=== PATIENT | female | born 1960 | race Caucasian/White ===

== ENCOUNTER 2017-12-11 21:43 | Emergency (ER) | payer BC ==
[2017-12-11 21:52] VITALS: BP 181/100
--- NOTE | 2017-12-11 22:18 | UC ---
Truncal Trauma HPI - History Of Current Complaint Chief Complaint: UCGeneralIllness Stated Complaint: SORE THROAT Time Seen by Provider: 12/11/17 22:10 Pain Intensity: 2 - Allergies/Home Medications Allergies/Adverse Reactions: Allergies Allergy/AdvReac Type Severity Reaction Status Date / Time MS Cat Hair Extract Allergy Unknown Verified 06/27/16 11:24 Reaction Details MS Pork Allergy Allergy DIARRHEA Verified 06/27/16 11:24 [Pork Allergy] AND VOMITING Penicillins Allergy Hives Verified 12/11/17 21:53 ENVIRONMENTAL/SEASONAL Allergy STUFFINESS Uncoded 02/12/15 11:05 HAYFEVER Home Medications: Home Medications NK [No Home Medications Reported] 12/11/17 [History Confirmed 12/11/17] PMH/Surg Hx/FS Hx/Imm Hx - Surgical History Surgical History: Yes Surgery Procedure, Year, and Place: 1985 FIBROID SURGERY, [facility]. 1999 LAPAROSCOPIC CHOLECYSTECTOMY, [facility] [place]. 2002 LEFT BREAST CANCER LUMPECTOMY. SECACEOUS CYST REMOVED FROM BELOW RIGHT BREAST AND CHEEK, OFFICE - Family History Known Family History: Positive: Diabetes, Other - Breast CA - Social History Alcohol Use: Rare Alcohol Amount: >1xmonth Substance Use Type: None Smoking Status (MU): Never Smoked Tobacco Review of Systems All Other Systems Reviewed And Are Negative: Yes Physical Exam Vital Signs: Initial Vital Signs Temp 37.7 C 12/11/17 21:47 Pulse 97 12/11/17 21:47 Resp 20 12/11/17 21:47 BP 181/100 12/11/17 21:47 Pulse Ox 96 12/11/17 21:47 Discharge - Sign-Out/Discharge Documenting (check all that apply): Discharge - Discharge Plan Condition: Stable Disposition: HOME Patient Education Materials: Pharyngitis (ED) Referrals: José Moreira NP [Primary Care Provider] - - Billing Disposition and Condition Condition: STABLE Disposition: HOME
--- NOTE | 2017-12-11 22:25 | UC ---
Throat Pain/Nasal Ranjan HPI - HPI Summary HPI Summary: 57 yo WF c/o sore throat x 3-4 days associated with nasal congestion and URI sx , denies f/c/cough - History of Current Complaint Chief Complaint: UCGeneralIllness Stated Complaint: SORE THROAT Time Seen by Provider: 12/11/17 22:10 Hx Obtained From: Patient Onset/Duration: Lasting Days Pain Intensity: 2 - Allergies/Home Medications Allergies/Adverse Reactions: Allergies Allergy/AdvReac Type Severity Reaction Status Date / Time MS Cat Hair Extract Allergy Unknown Verified 06/27/16 11:24 Reaction Details MS Pork Allergy Allergy DIARRHEA Verified 06/27/16 11:24 [Pork Allergy] AND VOMITING Penicillins Allergy Hives Verified 12/11/17 21:53 ENVIRONMENTAL/SEASONAL Allergy STUFFINESS Uncoded 02/12/15 11:05 HAYFEVER Home Medications: Home Medications NK [No Home Medications Reported] 12/11/17 [History Confirmed 12/11/17] PMH/Surg Hx/FS Hx/Imm Hx Previously Healthy: Yes - Surgical History Surgical History: Yes Surgery Procedure, Year, and Place: 1985 FIBROID SURGERY, [facility]. [place] [facility] [place] LEFT BREAST CANCER LUMPECTOMY. SECACEOUS CYST REMOVED FROM BELOW RIGHT BREAST AND CHEEK, OFFICE - Family History Known Family History: Positive: Diabetes, Other - Breast CA - Social History Alcohol Use: Rare Alcohol Amount: >1xmonth Substance Use Type: None Smoking Status (MU): Never Smoked Tobacco Review of Systems Constitutional: Negative Skin: Negative Eyes: Negative ENT: Sore Throat, Sinus Congestion Respiratory: Negative Cardiovascular: Negative Gastrointestinal: Negative Genitourinary: Negative Motor: Negative Neurovascular: Negative Musculoskeletal: Negative Neurological: Negative Psychological: Negative All Other Systems Reviewed And Are Negative: Yes Physical Exam Triage Information Reviewed: Yes Appearance: Well-Appearing Vital Signs: Initial Vital Signs Temp 37.7 C 12/11/17 21:47 Pulse 97 12/11/17 21:47 Resp 20 12/11/17 21:47 BP 181/100 12/11/17 21:47 Pulse Ox 96 12/11/17 21:47 Vital Signs Reviewed: Yes Eye Exam: Normal ENT: Positive: Pharyngeal erythema, TMs normal, Sinus tenderness. Negative: Tonsillar swelling, Tonsillar exudate Dental Exam: Normal Neck exam: Normal Neck: Positive: 1 Respiratory Exam: Normal Cardiovascular Exam: Normal Abdominal Exam: Normal Musculoskeletal Exam: Normal Neurological Exam: Normal Psychological Exam: Normal Skin Exam: Normal Throat Pain/Nasal Course/Dx - Course Course Of Treatment: Rapid strep neg - Differential Dx/Diagnosis Provider Diagnoses: viral pharyngitis. URI Discharge - Sign-Out/Discharge Documenting (check all that apply): Discharge - Discharge Plan Condition: Stable Disposition: HOME Patient Education Materials: Pharyngitis (ED) Referrals: José Moreira NP [Primary Care Provider] - - Billing Disposition and Condition Condition: STABLE Disposition: HOME
== END 2017-12-11 22:25 | disposition home or self-care (01) ==
LOC: UCEAST 21:43
DX: J02.8 Acute pharyngitis due to other specified organisms (principal); J06.9 Acute upper respiratory infection, unspecified; Z88.0 Allergy status to penicillin
CPT/HCPCS: 87651; 99212; G0463

== ENCOUNTER → 2019-04-07 01:13 | Emergency (ER) | payer BC ==
[~2019-04-07 01:13] MED LIST: Codeine TAB* 15 MG PO ONE; Codeine TAB* 30 MG PO ONE; predniSONE TAB* 50 MG PO ONE
--- NOTE | 2019-04-07 01:50 | ED ---
Shortness of Breath - HPI Summary HPI Summary: This patient is a 58 year old F [place] [facility] with a chief complaint of SOB lasting 5 minutes prior to arrival. Pt reports that she has been having seasonal allergies for the past month. ON 04/06/19 the post- nasal drip became so bad that she kept coughing. Pt takes Benadryl for these adverse reactions. Pt went to sleep and then reported SOB. Patient reports pain on flanks and down both arms, change in speech, throat itching, and ears itching. Pt has hypothyroidism, and HTN. - History of Current Complaint Chief Complaint: EDShortnessOfBreath Time Seen by Provider: 04/07/19 01:27 Hx Obtained From: Patient Onset/Duration: Sudden Onset, Lasting Minutes, Resolved Current Severity: None Aggravating Factors: Allergens Alleviating Factors: Spontaneous Resolution Associated Signs & Symptoms: Cough (Nonproductive), Nasal Congestion - Allergy/Home Medications Allergies/Adverse Reactions: Allergies Allergy/AdvReac Type Severity Reaction Status Date / Time MS Cat Hair Extract Allergy Unknown Verified 04/07/19 01:16 Reaction Details MS Pork Allergy Allergy DIARRHEA Verified 04/07/19 01:16 [Pork Allergy] AND VOMITING Penicillins Allergy Hives Verified 04/07/19 01:16 ENVIRONMENTAL/SEASONAL Allergy STUFFINESS Uncoded 04/07/19 01:16 HAYFEVER PMH/Surg Hx/FS Hx/Imm Hx Endocrine/Hematology History: Denies: Hx Diabetes, Hx Thyroid Disease Cardiovascular History: Reports: Hx Hypertension - ON MEDICATION Respiratory History: Denies: Hx Asthma, Hx Chronic Obstructive Pulmonary Disease (COPD) GI History: Denies: Hx Ulcer Sensory History: Reports: Hx Contacts or Glasses - GLASSES Denies: Hx Hearing Aid Opthamlomology History: Reports: Hx Contacts or Glasses - GLASSES - Cancer History Cancer Type, Location and Year: left breast ca 2002=lumpectomy - Surgical History Surgery Procedure, Year, and Place: 1985 FIBROID SURGERY, [facility]. 1999 [place] [facility] [place] LEFT BREAST CANCER LUMPECTOMY. SECACEOUS CYST REMOVED FROM BELOW RIGHT BREAST AND CHEEK, OFFICE. PARTIAL HYSTERECTOMY 2017- BOTH OVARIES AND HALF OF CERVIX REMAINING POST SURGERY Hx Anesthesia Reactions: Yes - IN & OUT OF CONSCIOUSNESS FOR A FEW DAYS WITH GENERAL Infectious Disease History: No Infectious Disease History: Denies: Hx Hepatitis, Hx Human Immunodeficiency Virus (HIV), Traveled Outside the [place] in Last 30 Days - Family History Known Family History: Positive: Diabetes, Other - Breast CA - Social History Lives: With Family Alcohol Use: Rare Alcohol Amount: >1xmonth Substance Use Type: Reports: None Smoking Status (MU): Never Smoked Tobacco Review of Systems Positive: Nasal Discharge, Other - pos - ears and throat itching Positive: Shortness Of Breath, Cough Positive: Other - pos - reports pain on flanks and down both arms All Other Systems Reviewed And Are Negative: Yes Physical Exam - Summary Physical Exam Summary: VITAL SIGNS: Reviewed. GENERAL: Patient is a well-developed and nourished female who is lying comfortable in the stretcher. Patient is not in any acute respiratory distress. HEAD AND FACE: No signs of trauma. No ecchymosis, hematomas or skull depressions. No sinus tenderness. EYES: PERRLA, EOMI x 2, No injected conjunctiva, no nystagmus. EARS: Hearing grossly intact. Ear canals and tympanic membranes are within normal limits. MOUTH: Oropharynx within normal limits. NECK: Supple, trachea is midline, no adenopathy, no JVD, no carotid bruit, no c- spine tenderness, neck with full ROM CHEST: Symmetric, no tenderness at palpation LUNGS: Clear to auscultation bilaterally. No wheezing or crackles. CVS: Regular rate and rhythm, S1 and S2 present, no murmurs or gallops appreciated. ABDOMEN: Soft, non-tender. No signs of distention. No rebound no guarding, and no masses palpated. Bowel sounds are normal. EXTREMITIES: FROM in all major joints, no edema, no cyanosis or clubbing. NEURO: Alert and oriented x 3. No acute neurological deficits. Speech is normal and follows commands. SKIN: Dry and warm Triage Information Reviewed: Yes Vital Signs On Initial Exam: Initial Vitals Temp Pulse Resp BP Pulse Ox 97.7 F 101 18 195/106 97 04/07/19 01:14 04/07/19 01:14 04/07/19 01:14 04/07/19 01:14 04/07/19 01:14 Vital Signs Reviewed: Yes Diagnostics - Vital Signs Vital Signs Temp Pulse Resp BP Pulse Ox 04/07/19 01:14 97.7 F 101 18 195/106 97 - Laboratory Lab Statement: Any lab studies that have been ordered have been reviewed, and results considered in the medical decision making process. Course/Dx - Course Course Of Treatment: This patient is a 58 year old F presenting to [facility] accompanied by with a chief complaint of SOB lasting 5 minutes prior to arrival. Pt reports that she has been having seasonal allergies for the past month. ON 04/06/19 the post-nasal drip became so bad that she kept coughing. Pt takes Benadryl for these adverse reactions. Pt went to sleep and then reported SOB. Patient reports pain on flanks and down both arms, change in speech, throat itching, and ears itching. Pt has hypothyroidism, and HTN. Physical Exam Findings are nml. Patient will be discharged with prescription for prednisone and follow up from PCP. The patient is agreeable with this plan. - Diagnoses Provider Diagnoses: Post-nasal drip Discharge - Sign-Out/Discharge Documenting (check all that apply): Patient Departure - Discharge Patient Received Moderate/Deep Sedation with Procedure: No - Discharge Plan Condition: Stable Disposition: HOME Prescriptions: predniSONE TAB* [Deltasone TAB*] 50 mg PO DAILY #4 tab Patient Education Materials: Postnasal Drip (DC) Referrals: José Moreira, [employer] [Primary Care Provider] - 3 Days Additional Instructions: PLEASE RETURN TO THE ED IMMEDIATELY FOR WORSENING OR CONCERNING SYMPTOMS. FOLLOW UP WITH PRIMARY CARE PHYSICIAN WITHIN 3 DAYS. - Attestation Statements Document Initiated by Chemaibe: Yes Documenting Scribe: Christy Mcgraw Provider For Whom Quyen is Documenting (Include Credential): Dr. Judith Mathews MD Scribe Attestation: Christy Britt scribed for Dr. Judith Mathews MD on 04/07/19 at 0201. Status of Scribe Document: Ready
[2019-04-07 02:25] VITALS: BP 158/87
== END | disposition home or self-care (01) ==
LOC: ED 01:13
DX: R09.82 Postnasal drip (principal); E03.9 Hypothyroidism, unspecified; I10 Essential (primary) hypertension; Z88.0 Allergy status to penicillin; Z79.899 Other long term (current) drug therapy
CPT/HCPCS: 99282; A9270-GY; J7512